=== PATIENT | male | born 1965 | race Caucasian/White ===

== ENCOUNTER 2021-04-28 19:07 | Inpatient (IN) ==
[2021-04-28] MEDS ORDERED: IOPAMIDOL 100 ML BOTTLE IV ONE (19:08)
[2021-04-28] MEDS ORDERED: PIPERACILLIN SODIUM/TAZOBACTAM 4.5 GM in DEXTROSE 5% IN WATER 50 ML IV ONE (21:14)
[2021-04-28] MEDS ORDERED: CLINDAMYCIN 600 MG in DEXTROSE 5% IN WATER 50 ML IV ONE (21:20)
--- NOTE | 2021-04-28 21:20 | Emergency Department Note ---
Dental HPI General Chief complaint: Dental/Oral Stated complaint: dental abscess Time Seen by Provider: 04/28/21 21:08 Source: patient Mode of arrival: ambulatory Limitations: no limitations History of Present Illness HPI Narrative: Narrative: 56 yo M w/ h/o previous dental infections, gout, p/w L upper jaw/dental pain for the past few days. 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 He noted swelling of his face at that time. While he did not c/o vocal issues, when asked, he did think that his voice was different than usual. Otherwise he denied F/C, difficulty swallowing, SOB, or other Sx. He has had de ntal issues in the past but never this bad. Related Data Home Medications Medication Instructions Recorded Confirmed olanzapine 10 mg PO DAILY 12/29/20 04/29/21 Allergies Allergy/AdvReac Type Severity Reaction Status Date / Time codeine Allergy Unknown Unknown Verified 04/28/21 19:08 Review of Systems ROS ROS Narrative: Narrative: All systems ED: reviewed and negative except as stated. [facility] Narrative Patient History Narrative: Narrative: Medical/Surgical/Family History All Active Problems (Updated 04/29/21 @ 00:59 by Manish Mistry MD) Marijuana smoker, continuous (Acute) Abnormal drug screen (Acute) Dental caries (Acute) Toothache (Acute) Sialadenitis (Acute) Hypertension (Acute) Dental abscess (Acute) Dental abscess (Acute) Gout (Acute) Acute gout (Acute) Facial swelling (Acute) Dental infection (Acute) Fall on stairs (Acute) Concussion (Acute) Contusion of scalp (Acute) Marijuana smoker, continuous (Chronic) Medical History Marijuana smoker, continuous Social History Smoking Status: Current every day smoker Exam Narrative Narrative: Narrative: General Limitations: no limitations General appearance: Present alert and in no apparent distress Head Head: Present atraumatic and normocephalic Eye Eye: Present normal appearance ENT ENT: Present mucous membranes moist and other (L upper lip and L cheek w/ significant edema, TTP. Muffled/hot potato voice noted. Extensive caries w/ tap tenderness over L upper molars and incisors. Uvula midline, tonsils unremarkable.) Neck Neck: Present normal inspection, full ROM and trachea midline; Absent tenderness Chest Chest: Present normal inspection and symmetric chest wall rise Respiratory Respiratory: Present normal lung sounds bilaterally; Absent respiratory distress, rales/crackles, wheezes and stridor Cardiovascular Cardiovascular: Present regular rate, normal rhythm, +S1, +S2 and other (2+ B/L radial pulses); Absent systolic murmur and diastolic murmur Adbominal Abdominal: Present soft and normal bowel sounds; Absent distention and tenderness Extremities Extremities: Absent pedal edema Neurological Neurological: Present alert and oriented X3 Psychiatric Psychiatric: Present normal affect Skin Skin: Present warm (WNL) and dry Course Vital Signs Vital signs: Vital Signs Temperature 96.1 F L 04/28/21 19:08 Pulse Rate 100 H 04/28/21 19:08 Respiratory Rate 18 04/28/21 19:08 Blood Pressure 190/111 04/28/21 19:08 Pulse Oximetry (%) 97 04/28/21 19:08 Temperature 99.2 F H 04/29/21 04:01 Pulse Rate 110 H 04/29/21 04:21 Respiratory Rate 18 04/29/21 04:21 Blood Pressure 160/115 04/29/21 04:01 Pulse Oximetry (%) 95 04/29/21 04:21 MDM MDM Narrative Medical decision making narrative: Narrative: 56 yo M p/w dental pain, facial swelling, muffled voice. DDx- Ludwigs angina, angioedema, dental abscess, sepsis 21:17. Pt arrived a few hours ago c/o dental pain. I attended to other urgent patients and he was monitored by the RNs. I was just now informed that he has developed significant facial swelling. On evaluation, he is resting comf ortably, in NAD, but has hot potato voice and significant lip and facial edema. Given the location and dental pain, I feel that progressive dental infection is more likely than angioedema, and medications such as epinephrine, benadryl, FFP, etc are not indicated. I am proceeding immediately w/ clinda and zosyn and have asked field staff to set up airway equipment at bedside. Pt reports that he is full code. 12:54. Pt has remained stable, w/ no progression in Sx, and w/ cont'd stable vitals. He reports feeling about the same or slightly better than on presentation. After finishing the abx, I reassessed him and he was stable. At that point I felt comfortable w/ him going to radiology for CT evaluation. CT showed no abscess, RPA, NURSE CASE MANAGEMENT, Ludwigs, or other serious findings. There was facial edema but o/w CT was unremarkable. Pt was clinically not septic, lactate was WNL. WBC were somewhat elevated at 11.3. Evaluation w/ labs was o/w unremarkable. Given the initial concern for an airway threat, pt will need admission for ongoing IV abx. I d/w the hospitalist who has accepted him for admission. ENT is not telephone betting clerk tonight, but the hospitalist plans to d/w them in the AM. Will continue to monitor while we arrange for a bed in the hospital. Lab Data Lab results reviewed: Yes I reviewed the patient's lab results. Result diagrams: 04/28/21 21:04/28/21 21:01 Labs: Lab Results 04/28/21 04/28/21 04/28/21 Range/Units 21: 21: 21:25 WBC 11.3 H (4.5-11.0) K/mcL RBC 4.88 (4.63-6.08) M/mcL Hgb 14.1 (13.7-17.5) g/dL Hct 41.8 (40.1-51.0) % MCV 85.7 (80.0-100.0) fL MCH 28.9 (26.0-34.0) pg MCHC 33.7 (31.0-36.0) g/dL RDW 13.2 (11.5-14.5) % Plt Count 290 (140-440) K/mcL MPV 9.8 (7.4-10.4) fL Neut % (Auto) 75.6 (38.0-78.0) % Lymph % (Auto) 14.0 L (15.5-49.0) % [place] % (Auto) 9.8 (1.0-12.0) % Eos % (Auto) 0.4 (0.0-7.0) % Baso % (Auto) 0.2 (0.0-2.0) % Lymph # (Auto) 1.59 (1.50-4.80) K/mcL [place] # (Auto) 1.11 H (0.10-0.90) K/mcL Eos # (Auto) 0.05 (0.00-0.70) K/mcL Baso # (Auto) 0.02 (0.00-0.30) K/mcL Absolute Neutrophils 8.57 H (1.80-8.00) K/mcL VBG Lactic Acid 0.9 (0.5-2.0) mmol/L Sodium 133 (133-145) mmol/L Potassium 3.8 (3.3-5.1) mmol/L Chloride 96 (96-108) mmol/L Carbon Dioxide 23 (22-30) mmol/L Anion Gap 14.0 (8.0-16.0) BUN 6 (6-20) mg/dL Creatinine 0.8 (0.7-1.2) mg/dL GFR Calculation 101 Glucose 100 (70-105) mg/dL Calcium 9.3 (8.6-10.4) mg/dL Total Bilirubin 0.6 (0.1-1.0) mg/dL AST 22 (<40) U/L ALT 17 (<40) U/L Alkaline Phosphatase 96 (39-117) U/L Total Protein 8.5 H (5.9-8.4) gm/dL Albumin 4.6 (3.2-5.2) gm/dL Globulin 3.9 H (2.2-3.7) gm/dL Albumin/Globulin Ratio 1.2 (1.0-2.3) ED POC Tests ED POC Tests: LOLIS - SARS Antigen Negative CC TIME Critical Care Time Total Critical Care Time: 45 Attestation: The very real possibility of disability or existed without emergent intervention. Organ systems at risk of deterioration included pulmona ry, CVS, ENT. Interventions included antibiotics, multiple re-evaluations, and interpretation of imaging and lab results. No procedures were required. Discharge Plan Patient/Caregiver Discharge Instructions Pt seen by [facility]/PA only: No Clinical Impression: Facial swelling, Dental infection Patient Disposition: Xfer As Inpt ([facility]) Condition: Serious Discharge Date/Time: 04/29/21 01:40
[2021-04-28] MEDS ORDERED: CLINDAMYCIN 600 MG/4 ML VIAL ONE (21:40)
[2021-04-28 22:06] LABS: Basophils # (Auto) 0.02 K/mcL (0.00-0.30); Basophils % (Auto) 0.2 % (0.0-2.0); Eosinophils # (Auto) 0.05 K/mcL (0.00-0.70); Eosinophils % (Auto) 0.4 % (0.0-7.0); Hematocrit 41.8 % (40.1-51.0); Hemoglobin 14.1 g/dL (13.7-17.5); Lymphocytes # (Auto) 1.59 K/mcL (1.50-4.80); Mean Cell Volume 85.7 fL (80.0-100.0); Mean Corpuscular HGB Conc 33.7 g/dL (31.0-36.0); Mean Platelet Volume 9.8 fL (7.4-10.4); Monocytes # (Auto) 1.11 K/mcL (0.10-0.90); Monocytes % (Auto) 9.8 % (1.0-12.0); Neutrophils % (Auto) 75.6 % (38.0-78.0); Platelet Count 290 K/mcL (140-440); RBC 4.88 M/mcL (4.63-6.08); Red Cell Distribution Width 13.2 % (11.5-14.5); WBC 11.3 K/mcL (4.5-11.0)
[2021-04-28 22:31] LABS: ALT/SGPT 17 U/L (<40); AST/SGOT 22 U/L (<40); Albumin 4.6 gm/dL (3.2-5.2); Albumin/Globulin Ratio 1.2 (1.0-2.3); Alkaline Phosphatase 96 U/L (39-117); Bilirubin,Total 0.6 mg/dL (0.1-1.0); Blood Urea Nitrogen 6 mg/dL (6-20); Calcium 9.3 mg/dL (8.6-10.4); Carbon Dioxide 23 mmol/L (22-30); Chloride 96 mmol/L (96-108); Globulin 3.9 gm/dL (2.2-3.7); Glomerular Filtration Rate 101; Glucose 100 mg/dL (70-105)
[2021-04-29] MEDS: 0.9 % SODIUM CHLORIDE 1,000 ML IV SCH ×3 (00:54→17:43)
[2021-04-29] MEDS: CLINDAMYCIN 600 MG in DEXTROSE 5% IN WATER 50 ML IV SCH ×4 (02:00→21:02)
[2021-04-29] MEDS ORDERED: PIPERACILLIN SODIUM/TAZOBACTAM 3.375 GM in DEXTROSE 5% IN WATER 50 ML IV SCH (06:00)
--- NOTE | 2021-04-29 07:13 | Internal Med History&Physical ---
HPI History of Present Illness Patient information: Note initiated : 04/29/21 at 7:07 am Service Date, if different from initiated Date: [] Patient: Prince Gillespie a 56 y/o M admitted on 04/29/21 for Dental Abscess. Chief Complaint: [] History of present illness: Mr. Gillespie is a 56 year old M Complains of left upper jaw pain and swelling. He has had dental infections in the past. He was awakened with worsening pain and he noted some swelling of his face on the left side and so he went into the ED. He denies fever chills or difficulty swallowing or shortness of breath. Afebrile in the ED's WBCs were borderline elevated. CT was done but did not show any abscess or other concerning findings. Patient has not seen dentist in years despite multiple ER visits for dental infections. He has not seen his PCP in at least a year. He says he was on blood pressure medications in the past but does not recall what they were. He does use marijuana and methamphetamine. Review of Systems: Pertinent positives as above. Denies headache/fever/chills/ nausea/vomiting/chest or abdominal pain/cough/dyspnea/diarrhea. Remaining 10 point review of system reviewed negative PFSH PFSH All Active Problems (Updated 04/29/21 @ 00:59 by Manish Mistry MD) Marijuana smoker, continuous (Acute) Abnormal drug screen (Acute) Dental caries (Acute) Toothache (Acute) Sialadenitis (Acute) Hypertension (Acute) Dental abscess (Acute) Dental abscess (Acute) Gout (Acute) Acute gout (Acute) Facial swelling (Acute) Dental infection (Acute) Fall on stairs (Acute) Concussion (Acute) Contusion of scalp (Acute) Marijuana smoker, continuous (Chronic) Medical History Marijuana smoker, continuous MEDS/ALLERGIES Home Medications and Allergies Home Medications Medication Instructions Recorded Confirmed Type olanzapine 10 mg PO DAILY 12/29/20 04/29/21 History Allergies Allergy/AdvReac Type Severity Reaction Status Date / Time codeine Allergy Unknown Unknown Verified 04/28/21 19:08 EXAM Constitutional Vitals: Temp Pulse Resp BP Pulse Ox 99.2 F H 117 H 19 160/115 93 04/29/21 04:01 04/29/21 05:42 04/29/21 05:42 04/29/21 04:01 04/29/21 05:42 Exam: General: Alert, Awake, No acute Distress Eyes/N/T: EOMI, PERRL, Mouth: No tongue edema no pharyngeal edema. Left cheek swollen but not particularly tender to touch. Neck: neck supple CV: RRR, No murmurs, normal s1/s2 Pulm: Clear b/l, no wheezing/rhonchi/rales Abd: soft, nontender, +BS x4 Ext: no clubbing/cyanosis/edema Neuro: Alert, no focal deficits, moves all extremities, CN 2-12 grossly intact, symmetrical strength b/l upper/lower, sensations intact b/l upper/lower Skin: warm/dry DATA Data Completed and Pending Labs: Labs from last 24 hours 04/28/21 04/28/21 04/28/21 21:25 21:01 21:01 WBC 11.3 H RBC 4.88 Hgb 14.1 Hct 41.8 MCV 85.7 MCH 28.9 MCHC 33.7 RDW 13.2 Plt Count 290 MPV 9.8 Neut % (Auto) 75.6 Lymph % (Auto) 14.0 L [place] % (Auto) 9.8 Eos % (Auto) 0.4 Baso % (Auto) 0.2 Lymph # (Auto) 1.59 [place] # (Auto) 1.11 H Eos # (Auto) 0.05 Baso # (Auto) 0.02 Absolute Neutrophils 8.57 H VBG Lactic Acid 0.9 Sodium 133 Potassium 3.8 Chloride 96 Carbon Dioxide 23 Anion Gap 14.0 BUN 6 Creatinine 0.8 GFR Calculation 101 Glucose 100 Calcium 9.3 Total Bilirubin 0.6 AST 22 ALT 17 Alkaline Phosphatase 96 Total Protein 8.5 H Albumin 4.6 Globulin 3.9 H Albumin/Globulin Ratio 1.2 A/P Narrative A/P Narrative: A: *Oral infection w/cellulitis, no abscess: -CT no abscess *Hypertension: Untreated, was on BP meds in past *Schizoaffective d/o: *Substance abuse with Meth (smokes): P: -Continue IV zosyn/clinda -Start Norvasc -Follow-up blood cultures and labs -Substance and smoking cessation counseling -ppx: Lovenox full code Time Spent With Patient Time: Total time spent is greater than 50% in coordination of care (as documented) at patient's floor/unit and/or counseling patient: QUALITY VTE Deep Vein Thrombosis/Pulmonary Embolism Present on Admission: No
[2021-04-29] MEDS ORDERED: SENNOSIDES 1 TABLET PO PRN (08:44)
[2021-04-29] MEDS ORDERED: IPRATROPIUM/ALBUTEROL 3 ML AMPUL.NEB NEB PRN (08:44)
[2021-04-29] MEDS ORDERED: ONDANSETRON 4 MG/2 ML VIAL IV PRN (08:44)
[2021-04-29] MEDS ORDERED: POLYETHYLENE GLYCOL 3350 17 GM PACKET PO PRN (08:44)
[2021-04-29] MEDS ORDERED: MAGNESIUM SULFATE 2 GM/50 ML BAG IV PRN (08:44)
[2021-04-29] MEDS ORDERED: POTASSIUM CHLORIDE 40 MEQ in DEXTROSE 5% IN WATER 500 ML IV PRN (08:44)
[2021-04-29] MEDS ORDERED: POTASSIUM CHLORIDE 20 MEQ TABLET PO PRN ×2 (08:44)
[2021-04-29] MEDS ORDERED: ACETAMINOPHEN 325 MG TABLET PO PRN (08:44)
--- NOTE | 2021-04-29 08:58 | Cat Scan Report ---
History: Left upper jaw pain, facial swelling, muffled voice, dental abscess TECHNIQUE: Following injection of intravenous nonionic contrast the face was imaged in axial plane at 2.5 mm intervals from the midportion the brain through the thoracic inlet. Sagittal and coronal reformats were created. The radiation exposure was limited using dose reduction technology. FINDINGS: There is a large amount soft tissue swelling involving the upper lip. The swelling extends to the base of the nose on the left side and anterior to the left maxilla. There is no evidence of facial abscess. The patient has poor dentition. There are caries in many of the teeth. A few teeth have been extracted. There is also periapical reabsorption of bone around the roots of several teeth in the maxilla and mandible bilaterally due to chronic periodontal disease. The oral cavity appears normal without evidence of a mass or swelling of the tongue. There is vague soft tissue swelling at the level of the aryepiglottic folds and vocal cords. The lumen of the airway at the level of vocal cords appears abnormally narrowed. This could be related to phonation. However, edema should be considered. Below level of the cords the trachea is normal. There is a small amount of mucus in the trachea. The thyroid and salivary glands are normal symmetric. There are no abnormally enlarged lymph nodes or soft tissue mass. Patient has emphysema in both upper lobes with multiple subpleural bulla in the right apex and mild parenchymal scarring. Neck is held in flexion. Moderate disc space narrowing and degeneration are present at C5-6 and C6-7 with milder disc degeneration at C4-5. There are spurs along the margins of these discs and spurring of the uncinate processes. There is moderate stenosis of the right-sided neural foramina at C5-6 and C6-7. IMPRESSION: Soft tissue swelling in the face, predominantly involving the upper lip. This could be due to edema or cellulitis. Resorption of bone around the roots of several teeth. The largest is at the level of the right upper incisor. Periapical abscess should be considered. Soft tissue swelling in the larynx which may be causing significant airway narrowing. Dr. Judge was called with the report Interpreted and Authenticated by: Guillaume Huitron 04/29/21
--- NOTE | 2021-04-29 09:05 | Emergency Department Note ---
ED Note Addendum Note Addendum: I was notified by Dr. Huitron from radiology that he appreciates some potential edema on the patient's glottic structures on the CT scan performed last night. I notified Dr. Peterson of these findings.
[2021-04-29] MEDS: DOCUSATE SODIUM 100 MG CAPSULE PO SCH ×2 (09:19→20:37)
[2021-04-29] MEDS: OLANZapine 5 MG TABLET PO SCH (09:19)
[2021-04-29] MEDS: amLODIPine 5 MG TABLET PO SCH (09:19)
[2021-04-29] MEDS: ENOXAPARIN 40 MG/0.4 ML SYRINGE SQ SCH ×2 (09:19)
[2021-04-29] MEDS: PIPERACILLIN SODIUM/TAZOBACTAM 4.5 GM in DEXTROSE 5% IN WATER 50 ML IV SCH ×2 (12:42→17:43)
[2021-04-29] MEDS: NICOTINE 21 MG PATCH TOPICAL SCH (12:42)
[2021-04-29 13:26] LABS: Amphetamine Screen,Urine Suspect positive; Barbiturate Screen,Urine None detected; Benzodiazepines Screen,Urine None detected; Cannabinoid Screen,Urine Suspect Positive; Cocaine Screen,Urine None detected; Opiate Screen,Urine None detected; Oxycodone, Urine Screen None detected; Phencyclidine Screen,Urine None detected
[2021-04-29] MEDS: 0.9 % SODIUM CHLORIDE 10 ML SYRINGE IV SCH ×2 (14:10→21:03)
[2021-04-30] MEDS: PIPERACILLIN SODIUM/TAZOBACTAM 4.5 GM in DEXTROSE 5% IN WATER 50 ML IV SCH ×5 (00:15→23:19)
[2021-04-30] MEDS: 0.9 % SODIUM CHLORIDE 1,000 ML IV SCH ×2 (03:50→08:43)
[2021-04-30] MEDS: 0.9 % SODIUM CHLORIDE 10 ML SYRINGE IV SCH ×3 (05:26→22:17)
[2021-04-30] MEDS: CLINDAMYCIN 600 MG in DEXTROSE 5% IN WATER 50 ML IV SCH ×3 (05:26→21:51)
[2021-04-30 07:03] LABS: Hemoglobin 12.7 g/dL (13.7-17.5); Mean Cell Volume 89.1 fL (80.0-100.0); Mean Corpuscular HGB Conc 31.8 g/dL (31.0-36.0); Mean Platelet Volume 9.8 fL (7.4-10.4); Platelet Count 235 K/mcL (140-440); RBC 4.49 M/mcL (4.63-6.08); Red Cell Distribution Width 13.4 % (11.5-14.5); WBC 6.6 K/mcL (4.5-11.0)
--- NOTE | 2021-04-30 07:40 | Internal Med Progress Note ---
SUBJECTIVE Subjective Patient information: Note initiated : 04/30/21 at 7:38 am Service Date, if different from initiated Date: [] Patient: Prince Gillespie 56 y/o M admitted on 04/29/21 for Dental Abscess. Chief Complaint: [] Interval history: History of present illness: Mr. Gillespie is a 56 year old M Complains of left upper jaw pain and swelling. He has had dental infections in the past. He was awakened with worsening pain and he noted some swelling of his face on the left side and so he went into the ED. He denies fever chills or difficulty swallowing or shortness of breath. Afebrile in the ED's WBCs were borderline elevated. CT was done but did not show any abscess or other concerning findings. Patient has not seen dentist in years despite multiple ER visits for dental infections. He has not seen his PCP in at least a year. He says he was on blood pressure medications in the past but does not recall what they were. He does use marijuana and methamphetamine. 04/30 Patient feeling better. Swelling improving. Leukocytosis improved. No breathing issues. Review of Systems: denies headache/fever/chills/nausea/vomiting/chest or abdominal pain/cough/dyspnea/diarrhea. Otherwise see above. Constitutional Vitals: Vital Signs Temp Pulse Resp BP Pulse Ox 98.2 F 93 H 16 129/88 100 04/30/21 04:01 04/30/21 06:02 04/30/21 06:02 04/30/21 06:02 04/30/21 06:02 Period Temp Pulse Resp BP Sys/Banda Pulse Ox Last 24 Hr 96.9 F-99.1 F 84-108 7-20 120-151/76-93 94-100 Intake and Output 04/29/21 04/30/21 04/30/21 21:59 05:59 13:59 Intake Total 1758 2710 54 Balance 1758 2710 54 Weight 87.271 kg Intake & Output: Intake & Output 04/29/21 04/30/21 04/30/21 21:59 05:59 13:59 Intake Total 1758 2710 54 Balance 1758 2710 54 Weight 87.271 kg Intake: IV 1158 1050 54 Sodium Chloride 0.9% 1,000 ml @ 1000 1000 125 mls/hr IV .Q8H [facility] Rx#: [id number] Cleocin 600 mg In Dextrose 5% 108 54 in Water 50 ml @ 100 mls/hr IV Q8H [facility] Rx#:[id number] Zosyn 4.5 gm In Dextrose 5% in 50 50 Water 50 ml @ 100 mls/hr IV Q6H [facility] Rx#:[id number] Oral 600 1660 Other: Percent of Meal Consumed 25% Feeding Ability Independent # Voids 1 1 Exam: General: Alert, Awake, No acute Distress Eyes/N/T: EOMI, Mouth: No tongue edema no pharyngeal edema. Left cheek swollen but not particularly tender to touch - improving Neck: neck supple CV: RRR, No murmurs, Pulm: Clear b/l, no wheezing/rhonchi/rales Abd: soft, nontender, +BS x4 Ext: no clubbing/cyanosis/edema Neuro: Alert, no focal deficits, moves all extremities, Skin: warm/dry OBJ DATA Labs CBC & Chem 7: 04/30/21 04:53 04/30/21 04:53 Labs: Abnormal Lab Results 04/30/21 04/29/21 04/29/21 04:53 11:38 07:20 WBC RBC 4.49 L Hgb 12.7 L Hct 40.0 L Lymph % (Auto) [place] # (Auto) Absolute Neutrophils C-Reactive Protein Total Protein Globulin Procalcitonin 0.15 H Ur Amphetamines Screen Suspect positive A U Marijuana (THC) Screen Suspect positive A 04/29/21 04/28/21 04/28/21 07:20 21:01 21:01 WBC 11.3 H RBC Hgb Hct Lymph % (Auto) 14.0 L [place] # (Auto) 1.11 H Absolute Neutrophils 8.57 H C-Reactive Protein 8.80 H Total Protein 8.5 H Globulin 3.9 H Procalcitonin Ur Amphetamines Screen U Marijuana (THC) Screen Meds: Medications Acetaminophen (Acetaminophen 325 Mg Tablet) 650 mg PO Q6HP PRN PRN Reason: PAIN/FEVER > 101 Last Admin: 04/30/21 06:02 Dose: 650 mg Documented by: Albuterol/Ipratropium (Ipratropium/Albuterol 3 Ml Ampul.Neb) 3 ml NEB Q4HP PRN PRN Reason: Shortness Of Breath Amlodipine Besylate (Amlodipine 5 Mg Tablet) 2.5 mg PO DAILY [facility] Last Admin: 04/29/21 09:19 Dose: 2.5 mg Documented by: Docusate Sodium (Docusate Sodium 100 Mg Capsule) 100 mg PO BID [facility] Last Admin: 04/29/21 20:37 Dose: Not Given Documented by: Enoxaparin Sodium (Enoxaparin 40 Mg/0.4 Ml Syringe) 40 mg SQ DAILY [facility] Last Admin: 04/29/21 09:19 Dose: 40 mg Documented by: Sodium Chloride (Sodium Chloride 0.9%) 1,000 mls @ 125 mls/hr IV .Q8H [facility] Last Admin: 04/30/21 03:50 Dose: 125 mls/hr Documented by: Clindamycin Phosphate 600 mg/ (Dextrose) 54 mls @ 100 mls/hr IV Q8H [facility]; Protocol Last Infusion: 04/30/21 06:06 Dose: Infused Documented by: Potassium Chloride 40 meq/ (Dextrose) 520 mls @ 130 mls/hr IV UD PRN PRN Reason: Potassium < 3 Magnesium Sulfate (Magnesium Sulfate) 2 gm in 50 mls @ 50 mls/hr IV UD PRN PRN Reason: Magnesium </= 1.6 Piperacillin Sod/Tazobactam (Sod 4.5 gm/ Dextrose) 50 mls @ 100 mls/hr IV Q6H [facility]; Protocol Last Admin: 04/30/21 05:56 Dose: 100 mls/hr Documented by: Nicotine (Nicotine 21 Mg Patch) 21 mg TOPICAL DAILY@1000 [facility] Last Admin: 04/29/21 12:42 Dose: 21 mg Documented by: Olanzapine (Olanzapine 5 Mg Tablet) 10 mg PO DAILY [facility] Last Admin: 04/29/21 09:19 Dose: 10 mg Documented by: Ondansetron HCl (Ondansetron 4 Mg/2 Ml Vial) 4 mg IV Q4HP PRN PRN Reason: Nausea And Vomiting Polyethylene Glycol (Polyethylene Glycol 3350 17 Gm Packet) 17 gm PO DAILYP PRN PRN Reason: Constipation Potassium Chloride (Potassium Chloride 20 Meq Tablet) 40 meq PO UD PRN PRN Reason: Potssium is 3-3.5 Potassium Chloride (Potassium Chloride 20 Meq Tablet) 40 meq PO UD PRN PRN Reason: Potassium < 3 Senna (Sennosides 1 Tablet) 2 tab PO DAILYP PRN PRN Reason: Constipation Sodium Chloride (0.9 % Sodium Chloride 10 Ml Syringe) 10 ml IV Q8 [facility] Last Admin: 04/30/21 05:26 Dose: 10 ml Documented by: A/P Narrative A/P Narrative: A: *Oral infection w/cellulitis to face/cheek, no abscess: -CT no abscess -Leukocytosis resolved *Hypertension: Untreated, was on BP meds in past *Schizoaffective d/o: *Substance abuse with Meth (smokes): *mild hyponatremia: P: -Continue IV zosyn/clinda -cont monitor airway -Start Norvasc -Follow-up blood cultures and labs -f/u chemistry in AM -Substance and smoking cessation counseling -f/u with Dentist -ppx: Lovenox full code Time Spent With Patient Time: Total time spent is greater than 50% in coordination of care (as documented) at patient's floor/unit and/or counseling patient: QUALITY VTE Deep Vein Thrombosis/Pulmonary Embolism Present on Admission: No
[2021-04-30 07:48] LABS: ALT/SGPT 11 U/L (<40); AST/SGOT 14 U/L (<40); Albumin 3.7 gm/dL (3.2-5.2); Alkaline Phosphatase 71 U/L (39-117); Bilirubin,Direct < 0.2 mg/dL (0-0.3); Bilirubin,Total 0.5 mg/dL (0.1-1.0); Blood Urea Nitrogen 6 mg/dL (6-20); Calcium 8.8 mg/dL (8.6-10.4); Carbon Dioxide 21 mmol/L (22-30); Chloride 101 mmol/L (96-108); Globulin 3.6 gm/dL (2.2-3.7); Glomerular Filtration Rate 107; Glucose 78 mg/dL (70-105); Lactate Dehydrogenase 152 U/L (135-225); Phosphorous 2.5 mg/dL (2.5-4.5); Triglycerides 75 mg/dL (<150); Uric Acid 4.3 mg/dL (2.5-8.0)
[2021-04-30 08:22] LABS: Band Neutrophils % 2 % (0-10); Eosinophils % (Manual) 1 % (0-7); Lymphocytes % 33 % (15-49); Monocytes % (Manual) 11 % (1-12); Platelet Estimate NORMAL (Normal); RBC Morphology NORMAL (Normal); Reactive Lymphocytes 1 % (0-2); Segmented Neutrophils % 52 % (38-78)
[2021-04-30] MEDS: amLODIPine 5 MG TABLET PO SCH (08:30)
[2021-04-30] MEDS: DOCUSATE SODIUM 100 MG CAPSULE PO SCH ×2 (08:30→20:52)
[2021-04-30] MEDS: OLANZapine 5 MG TABLET PO SCH (08:31)
[2021-04-30] MEDS: ENOXAPARIN 40 MG/0.4 ML SYRINGE SQ SCH (08:31)
[2021-04-30] MEDS ORDERED: FUROSEMIDE 40 MG/4 ML VIAL IV ONE (08:56)
[2021-04-30] MEDS ORDERED: IOPAMIDOL 100 ML BOTTLE IV ONE (10:23)
[2021-04-30] MEDS ORDERED: SENNOSIDES 1 TABLET PO PRN (10:23)
[2021-04-30] MEDS ORDERED: POTASSIUM CHLORIDE 20 MEQ TABLET PO PRN ×2 (10:23)
[2021-04-30] MEDS ORDERED: IPRATROPIUM/ALBUTEROL 3 ML AMPUL.NEB NEB PRN (10:23)
[2021-04-30] MEDS ORDERED: POLYETHYLENE GLYCOL 3350 17 GM PACKET PO PRN (10:23)
[2021-04-30] MEDS ORDERED: ONDANSETRON 4 MG/2 ML VIAL IV PRN (10:23)
[2021-04-30] MEDS ORDERED: ACETAMINOPHEN 325 MG TABLET PO PRN (10:23)
[2021-04-30] MEDS ORDERED: POTASSIUM CHLORIDE 40 MEQ in DEXTROSE 5% IN WATER 500 ML IV PRN (10:23)
[2021-04-30] MEDS: NICOTINE 21 MG PATCH TOPICAL SCH (10:23)
[2021-04-30] MEDS ORDERED: MAGNESIUM SULFATE 2 GM/50 ML BAG IV PRN (10:23)
--- NOTE | 2021-04-30 11:13 | Discharge Summary ---
Discharge Provider Provider Patient information: Note initiated : 04/30/21 at 11:12 am Service Date, if different from initiated Date: [] Patient: Prince Gillespie a 56 y/o M admitted on 04/29/21 for Dental Abscess. Chief Complaint: [] Date of admission: 04/29/21 01:39 Discharge date: 05/01/21 Primary care physician: ELIZABETH Velasquez Consults: 04/29/21 Consult to Physician [CONS] Stat Comment: Consulting Provider: Johny Peterson Reason For Exam: Physician to Consult Discharge Meds Discharge Medications Home Medications olanzapine 10 mg PO DAILY 12/29/20 [History Confirmed 04/29/21 Last Taken 04/29/21] amoxicillin-pot clavulanate [Augmentin] 1 tab PO Q12H #14 tab 04/30/21 [Rx Last Taken Unknown] COURSE Hospital Course Hospital course: Interval history: History of present illness: Mr. Gillespie is a 56 year old M Complains of left upper jaw pain and swelling. He has had dental infections in the past. He was awakened with worsening pain and he noted some swelling of his face on the left side and so he went into the ED. He denies fever chills or difficulty swallowing or shortness of breath. Afebrile in the ED's WBCs were borderline elevated. CT was done but did not show any abscess or other concerning findings. Patient has not seen dentist in years despite multiple ER visits for dental infections. He has not seen his PCP in at least a year. He says he was on blood pressure medications in the past but does not recall what they were. He does use marijuana and methamphetamine. 04/30 Patient feeling better. Swelling improving. Leukocytosis improved. No breathing issues. 05/01 Doing well. Swelling continues improved. Stable for discharge. A/P Narrative: A: *Oral infection w/cellulitis to face/cheek, no abscess: -CT no abscess -Leukocytosis resolved *Hypertension: Untreated, was on BP meds in past *Schizoaffective d/o: *Substance abuse with Meth (smokes): *mild hyponatremia: Discharge diagnosis: Oral infection with facial cellulitis Secondary discharge diagnosis: Hypertension schizoaffective disorder substance abuse with meth Time Spent with Patient Time attestation: Total time spent providing and/or coordinating discharge services: Time spent: Greater than 30 minutes EXAM Constitutional Vitals: Temp Pulse Resp BP Pulse Ox 98.4 F 81 19 118/78 99 04/30/21 08:01 04/30/21 08:01 04/30/21 08:01 04/30/21 08:01 04/30/21 08:01 Discharge Data Data Completed and Pending Labs on day of discharge: Labs from last 24 hours 04/30/21 04/30/21 04/30/21 04:53 04:53 04:53 WBC 6.6 RBC 4.49 L Hgb 12.7 L Hct 40.0 L MCV 89.1 MCH 28.3 MCHC 31.8 RDW 13.4 Plt Count 235 MPV 9.8 Seg Neutrophils % 52 Band Neutrophils % 2 Lymphocytes % 33 Monocytes % (Manual) 11 Eosinophils % (Manual) 1 Reactive Lymphocytes 1 Platelet Estimate Normal RBC Morphology Normal Sodium 132 L Potassium 3.9 Chloride 101 Carbon Dioxide 21 L Anion Gap 10.0 BUN 6 Creatinine 0.7 GFR Calculation 107 Glucose 78 Uric Acid 4.3 Calcium 8.8 Phosphorus 2.5 Magnesium 2.4 Total Bilirubin 0.5 Direct Bilirubin < 0.2 GGT 25 AST 14 ALT 11 Alkaline Phosphatase 71 Lactate Dehydrogenase 152 C-Reactive Protein 10.80 H Total Protein 7.3 Albumin 3.7 Globulin 3.6 Albumin/Globulin Ratio 1.0 Triglycerides 75 Urine Opiates Screen Ur Opiates Confirm Ur Oxycodone Screen Urine Methadone Screen Ur Methadone Confirm Ur Barbiturates Screen Ur Barbiturate Confirm Ur Phencyclidine Scrn Urine PCP Confirm Ur Amphetamines Screen U Amphetamines Confirm U Benzodiazepines Scrn U Benzodiazepine Confm Urine Cocaine Screen Urine Cocaine Confirm U Cannabinoids Confirm U Marijuana (THC) Screen 04/29/21 11:38 WBC RBC Hgb Hct MCV MCH MCHC RDW Plt Count MPV Seg Neutrophils % Band Neutrophils % Lymphocytes % Monocytes % (Manual) Eosinophils % (Manual) Reactive Lymphocytes Platelet Estimate RBC Morphology Sodium Potassium Chloride Carbon Dioxide Anion Gap BUN Creatinine GFR Calculation Glucose Uric Acid Calcium Phosphorus Magnesium Total Bilirubin Direct Bilirubin GGT AST ALT Alkaline Phosphatase Lactate Dehydrogenase C-Reactive Protein Total Protein Albumin Globulin Albumin/Globulin Ratio Triglycerides Urine Opiates Screen None detected Ur Opiates Confirm TNP Ur Oxycodone Screen None detected Urine Methadone Screen None detected Ur Methadone Confirm TNP Ur Barbiturates Screen None detected Ur Barbiturate Confirm TNP Ur Phencyclidine Scrn None detected Urine PCP Confirm TNP Ur Amphetamines Screen Suspect positive A U Amphetamines Confirm Pending U Benzodiazepines Scrn None detected U Benzodiazepine Confm TNP Urine Cocaine Screen None detected Urine Cocaine Confirm TNP U Cannabinoids Confirm Pending U Marijuana (THC) Screen Suspect positive A Preliminary micro results at discharge 04/28/21 21:25 Blood Culture - Preliminary Blood 04/28/21 21:15 Blood Culture - Preliminary Blood Discharge Plan Patient/Caregiver Discharge Instructions Activity: increase activity as tolerated Diet: Regular Diet Instructions: Dental Abscess (GEN) Prescriptions: New amoxicillin-pot clavulanate [Augmentin] 875-125 mg tablet 1 tab PO Q12H Qty: 14 RF: 0 Continued olanzapine 10 mg tablet 10 mg PO DAILY RF: 0 Follow Up Plan Follow up with: [facility] [Other] - 05/17/21 1:00 pm Douglas Rolon ARNP [Primary Care Provider] - 05/10/21 10:30 am Patient Disposition: Home, Self-Care Prognosis: Undetermined Overall status at discharge: patient is progressing back to baseline Discharge Orders: Discharge Order (Routine); Ordered 05/01/21 Ordered By: Johny Peterson [facility] Deep Vein Thrombosis/Pulmonary Embolism Present on Admission: No
[2021-05-01] MEDS: PIPERACILLIN SODIUM/TAZOBACTAM 4.5 GM in DEXTROSE 5% IN WATER 50 ML IV SCH (05:30)
[2021-05-01] MEDS: CLINDAMYCIN 600 MG in DEXTROSE 5% IN WATER 50 ML IV SCH (05:30)
[2021-05-01] MEDS: 0.9 % SODIUM CHLORIDE 10 ML SYRINGE IV SCH (05:30)
[2021-05-01] MEDS ORDERED: ENOXAPARIN 40 MG/0.4 ML SYRINGE SQ SCH (09:00)
[2021-05-01] MEDS ORDERED: amLODIPine 5 MG TABLET PO SCH (09:00)
[2021-05-01] MEDS ORDERED: OLANZapine 5 MG TABLET PO SCH (09:00)
[2021-05-01 09:53] LABS: Blood Urea Nitrogen 6 mg/dL (6-20); Calcium 9.4 mg/dL (8.6-10.4); Carbon Dioxide 21 mmol/L (22-30); Chloride 97 mmol/L (96-108); Glomerular Filtration Rate 107; Glucose 80 mg/dL (70-105)
[2021-05-01] MEDS ORDERED: NICOTINE 21 MG PATCH TOPICAL SCH (10:00)
[2021-05-01] MEDS: DOCUSATE SODIUM 100 MG CAPSULE PO SCH (10:10)
[2021-05-10 05:38] LABS: Cannabinoid Confirmation Positive
== END 2021-05-01 10:10 | disposition home or self-care (01) | DRG 603 ==
LOC: ED 19:07 → ICU 04-29 01:39
PROVIDERS: ADMIT Internal Medicine; ATTEND Internal Medicine